=== PATIENT | female | born 1990 | race Caucasian/White ===

== ENCOUNTER 2016-11-10 22:14 | Observation (INO) ==
[2016-11-11] MEDS ORDERED: Naloxone 0.4 MG/ML INJ IVP PRN (00:48)
--- NOTE | 2016-11-11 00:57 | Internal Med History&Physical ---
Date of Encounter: 11/11/16 Time of Encounter: 01:00 Assessment and Plan (1) KENYON (acute kidney injury) Current visit: Yes Status: Acute Etiology is undetermined. Patient's family history of polycystic renal disease makes her having a risk of polycystic kidney problem. - We will check renal ultra sounds to rule out polycystic kidney problem and obstruction. - We will check UA, urine sodium, potassium, creatinine, and eosinophil. - We will track urine output and renal function. - Nephrology consult. (2) Edema Current visit: Yes Status: Acute Probably due to her KENYON. Will follow lab results, US Renal. Nephrology consult. - We will hold IV fluid now because patient was given IV fluid in [facility], which seems not improved urine output and increased patient's swelling. Qualifiers: Edema type: localized Qualified Code(s): R60.0 - Localized edema (3) DVT prophylaxis Current visit: Yes Status: Acute Lovenox subcutaneously. 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 Internal Medicine - H&P: HPI Chief complaint: Feet and hands swelling Admitted From: Home Plans for Post Hospital Care: Home History of present illness: Ms. Ruano is a 26 year old female transferred from [facility] for feet and hands swelling since yesterday. Patient did generally in good health, no significant past medical history. She found swelling on bilateral lower extremity, with pain. She also found bilateral hands swelling. She also found her urine output is decreased. The condition is getting worse and she went to the emergency room in [facility]. She was found elevated creatinine level. Patient denies lightheaded, dizziness, sore throat, cough, shortness of breath, chest pain, nausea, vomiting, abdominal pain, diarrhea, urination symptoms like burning or urgent. She has no recent URI. She is not currently taking any medication. She denies recent dehydration or hypotension. She was admitted for further management. Patient's father's side has a family history of polycystic kidney disease. Patient also has hyper-homocystine level. I discussed the CODE STATUS with patient. She is full code. Past Med Surg Social Fam HX - Past Medical History Psychiatric history: no psych history - Past Surgical History Surgical History: - Social History Smoking Status: Current every day smoker Packs per day: 1/2 ppd Smokeless Tobacco Status: No Alcohol use: none Drug use: none - Family History Mother Living Status: Still Living Hx Family Endocrine Disorder: Yes (DM) Internal Medicine - H&P: Meds Allergies ciprofloxacin [From Cipro] Allergy (Verified 11/11/16 00:05) Anaphylaxis Sulfa (Sulfonamide Antibiotics) Allergy (Verified 11/11/16 00:05) Anaphylaxis sulfamethoxazole [From Bactrim] Allergy (Verified 11/11/16 00:05) Anaphylaxis trimethoprim [From Bactrim] Allergy (Verified 11/11/16 00:05) Anaphylaxis All Systems PM: A 10-system review of systems was performed and is negative for pertinent findings except as documented above in the HPI. - Constitutional Vitals: Temp Pulse Resp BP Pulse Ox 98.0 F 69 17 124/74 98 11/11/16 00:07 11/11/16 00:07 11/11/16 00:07 11/11/16 00:07 11/11/16 00:07 General appearance: Present: A&O X 3, no acute distress, answers questions appropriately - Head Head exam: Present: atraumatic, normocephalic - Eye Eye exam: Present: PERRL, conjuntiva pink, sclera anicteric Pupils: Present: PERRL - Neck Neck exam general surgery: Present: supple, trachea midline. Absent: lymphadenopathy - Respiratory Respiratory exam: Present: CTAB. Absent: accessory muscle use, rales, rhonchi, wheezes - Cardiovascular Cardiovascular exam: Present: RRR, +S1, +S2. Absent: diastolic murmur, gallop, rubs, systolic murmur - GI/Abdominal GI/Abdominal exam: Present: normal bowel sounds, soft, no peritoneal signs. Absent: distended, tenderness - Extremities Exam Extremities exam: Present: pedal edema, warm, radial pulses palpable and symetrical. Absent: calf tenderness, cyanotic Additional comments: Bilateral hand and feet edema, non-pitting. - Neurological Exam Neurological exam: Present: CN II-XII intact, oriented X3, no focal deficits. Absent: pronater drift, facial droop, speech deficit - Skin Skin exam: Present: dry, intact Internal Med - H&P Results - Labs Labs: Labs from [facility]: CBC 6.3/12.2/36.7/241 eosinophils 2%. BMP: 143/4/108/24/18/1.9 /98. Albumin 3.9, UA: WBC 6-10/hp
[2016-11-11] MEDS: *HR* OxyCODONE/APAP 5/325 TABLET PO PRN ×2 (01:09→21:18)
[2016-11-11 01:27] LABS: Bilirubin,Urine Negative (Negative); Blood,Urine Negative (Negative); Clarity,Urine Cloudy (Clear); Color,Urine Yellow (Yellow); Glucose,Urine (UA) Normal (Normal); Ketones,Urine Negative (Negative); Leukocyte Esterase,Urine Small (Negative); Nitrite,Urine Negative (Negative); PH,Urine 5.5 pH Units (5.0-8.0); Protein,Urine Negative (Neg-Trace); Specific Gravity,Urine 1.016 (1.010-1.025); Urobilinogen,Urine Normal (Normal)
[2016-11-11 01:29] LABS: Hyaline Casts,Urine Few per lpf (None-Few); Squamous Epithelial Cell,Urine Many per lpf (None-Few); WBC,Urine 15-30 per hpf (0-3)
[2016-11-11 01:35] LABS: Bacteria,Urine Few per hpf (None-Few)
[2016-11-11 01:37] LABS: Potassium,Urine 27.9 mEq/L
[2016-11-11] MEDS ORDERED: Acetaminophen 325 MG TABLET PO PRN (02:11)
[2016-11-11 04:45] LABS: INR 1.1; Prothrombin Time 11.4 Seconds (9.4-12.1)
[2016-11-11 04:48] LABS: Basophils % 0.2 %; Eosinophils # 0.1 K/mcL (0.0-0.6); Eosinophils % 3.1 %; Hematocrit 30.7 % (35.3-44.9); Hemoglobin 10.1 g/dL (11.5-15.4); Immature Granulocytes % 0.7 % (0-4); Lymphocytes # 1.8 K/mcL (0.6-4.6); Lymphocytes % 39.5 %; Mean Corpuscular HGB Conc 32.9 g/dL (31.6-35.5); Mean Corpuscular Hemoglobin 30.4 pg (28.0-33.3); Mean Corpuscular Volume 92.5 fL (83.0-100.0); Mean Platelet Volume 10.5 fL (9.4-12.4); Monocytes # 0.4 K/mcL (0.0-1.3); Monocytes % 8.3 %; Neutrophils # 2.2 K/mcL (1.6-8.9); Platelet Count 197 K/mcL (140-400); Red Blood Count 3.32 M/mcL (3.82-4.97); Red Cell Distribution Width 13.2 % (11.5-14.5); Segmented Neutrophils % 48.2 %
[2016-11-11 04:55] LABS: Albumin 2.9 g/dL (3.5-5.0); Albumin/Globulin Ratio 1.2 (1.1-2.2); Bilirubin,Total 0.2 mg/dL (0.2-1.2); Calcium 8.1 mg/dL (8.6-10.8); Globulin 2.5 g/dL (2.4-3.5); Magnesium 2.1 mg/dL (1.6-2.6); Potassium 3.6 mEq/L (3.5-4.5); Total Protein 5.4 g/dL (6.0-8.3)
[2016-11-11 05:26] LABS: Large Platelets Present (Not Present); Platelet Estimate Normal (Normal); Reactive Lymphocytes Present (Not Present)
[2016-11-11] MEDS: *HR* Heparin 5,000 UNIT/ML VIAL SQ SCH ×2 (05:31→18:45)
[2016-11-11] MEDS ORDERED: Ondansetron 4 MG/2 ML VIAL IVP PRN (08:17)
--- NOTE | 2016-11-11 11:34 | Nephrology Consult Note ---
Date of Encounter: 11/11/16 Time of Encounter: 11:30 Assessment and Plan (1) KENYON (acute kidney injury) Status: Acute Elevated SCr with decreased UOP and edema rule out GN Agree with US of kidney UA does not show active sediment which is not consistent with GN but will check urine for proteinuria Will check KENYA and complements Will also check rheumatoid factor as well Encourage po fluids Will check CPK and uric acid levels (2) Edema Status: Acute Etiology unclear but no diuretics at this time Low sodium diet for now Qualifiers: Edema type: localized Qualified Code(s): R60.0 - Localized edema History of Present Illness - Reason for Consult Consult date: 11/11/16 Acute Kidney Injury Requesting physician: Niko Salas - History of Present Illness 26 y o female with no significant PMH f family history of polycystic renal disease admitted as a transfer from [facility] for LE/UE edema. She was noted with SCr of 1.64, GFR 37 with no baseline available. She also had decreased UOP but no recent URI. No athrlagias and myalgias. She denies any dietary indiscretions. She denies any prior history of renal disease. No hematuria or proteinuria. At the time of this evaluation, patient was having some nausea. Past Med Surg Social Fam HX - Past Medical History Psychiatric history: no psych history - Past Surgical History Surgical History: - Social History Smoking Status: Current every day smoker Packs per day: 1/2 ppd Smokeless Tobacco Status: No Alcohol use: none Drug use: none - Family History Mother Living Status: Still Living Hx Family Endocrine Disorder: Yes (DM) Medications and Allergies Allergies ciprofloxacin [From Cipro] Allergy (Verified 11/11/16 00:05) Anaphylaxis Sulfa (Sulfonamide Antibiotics) Allergy (Verified 11/11/16 00:05) Anaphylaxis sulfamethoxazole [From Bactrim] Allergy (Verified 11/11/16 00:05) Anaphylaxis trimethoprim [From Bactrim] Allergy (Verified 11/11/16 00:05) Anaphylaxis Review of Systems All Systems: reviewed and no additional remarkable complaints except as stated ( 10 systems reviwed) Exam - Vital Signs Vital signs: Initial Vital Signs Temp Pulse Resp BP Pulse Ox 98.0 F 69 17 124/74 98 11/11/16 00:07 11/11/16 00:07 11/11/16 00:07 11/11/16 00:07 11/11/16 00:07 Vital Signs - Last 8 Hours Temp Pulse Resp BP Pulse Ox 11/11/16 11:14 98.4 F 69 17 109/66 99 11/11/16 07:41 97.6 F 77 17 112/69 98 11/11/16 03:50 97.9 F 71 14 112/67 98 Intake and Output 11/10/16 11/11/16 11/11/16 23:59 07:59 15:59 Other: Weight 77.292 kg Patient Weight 11/11/16 23:59 Weight 77.292 kg - General Appearance General appearance: well-developed, well-nourished EENT: ATNC, mucous membranes moist Neck: no JVD, supple Respiratory: clear Cardiology: edema (UE with fingers R>L, trace LE edema bilat), normal S1, normal S2 Gastrointestinal: no tenderness, no guarding Integumentary: warm and dry Neurologic: no focal deficit Musculoskeletal: no deformities Psychiatric: mood/affect appropriate, cooperative Results - Lab Results 11/12/16 10:59 11/12/16 18:29 Most recent lab results Calcium 8.1 mg/dL (8.6-10.8) L 11/11/16 03:25 Phosphorus 5.0 mg/dL (2.3-4.7) H 11/11/16 03:25 Magnesium 2.1 mg/dL (1.6-2.6) 11/11/16 03:25 Urine Creatinine 169 mg/dL 11/11/16 01:05 Urine Sodium 93.0 mEq/L 11/11/16 01:05 Consult Discharge Plan - Plan Referrals: Yenifer Deshpande CNP [Primary Care Provider] - Shelley Martines MD [Partnered Physician] -
[2016-11-11] MEDS: Acetaminophen/Aspirin/Caffeine TABLET PO PRN (11:46)
[2016-11-11 13:45] LABS: Amphetamine Screen,Urine Negative ng/mL (Cutoff=1000); Barbiturate Screen,Urine Negative ng/mL (Cutoff=200); Benzodiazepines Screen,Urine Negative ng/mL (Cutoff=200); Cannabinoid Screen,Urine Negative ng/mL (Cutoff = 50); Cocaine Screen,Urine Negative ng/mL (Cutoff= 300); Opiate Screen,Urine Positive ng/mL (Cutoff=300); Phencyclidine Screen,Urine Negative ng/mL (Cutoff=25)
[2016-11-11 13:47] LABS: Protein/Creatinine Ratio,Urine 0.14 mg/mg (0-0.20)
[2016-11-11 14:42] LABS: Uric Acid 5.7 mg/dL (2.6-6.0)
[2016-11-11] MEDS ORDERED: 0.9 % Sodium Chloride 1,000 ML IVC SCH (23:45)
[2016-11-12] MEDS: *HR* Heparin 5,000 UNIT/ML VIAL SQ SCH ×3 (06:05→18:42)
[2016-11-12 11:14] LABS: Basophils % 0.5 %; Eosinophils # 0.1 K/mcL (0.0-0.6); Eosinophils % 2.6 %; Hematocrit 29.6 % (35.3-44.9); Hemoglobin 9.8 g/dL (11.5-15.4); Immature Granulocytes % 0.2 % (0-4); Lymphocytes # 1.6 K/mcL (0.6-4.6); Lymphocytes % 36.5 %; Mean Corpuscular HGB Conc 33.1 g/dL (31.6-35.5); Mean Corpuscular Hemoglobin 30.8 pg (28.0-33.3); Mean Corpuscular Volume 93.1 fL (83.0-100.0); Mean Platelet Volume 10.3 fL (9.4-12.4); Monocytes # 0.4 K/mcL (0.0-1.3); Monocytes % 9.4 %; Neutrophils # 2.2 K/mcL (1.6-8.9); Platelet Count 205 K/mcL (140-400); Red Blood Count 3.18 M/mcL (3.82-4.97); Red Cell Distribution Width 13.2 % (11.5-14.5); Segmented Neutrophils % 50.8 %
[2016-11-12 11:26] LABS: Magnesium 2.2 mg/dL (1.6-2.6); Phosphorous 3.2 mg/dL (2.3-4.7); Potassium 3.9 mEq/L (3.5-4.5)
[2016-11-12 11:28] LABS: % Iron Saturation 47 % (15-50); Iron 104 mcg/dL (50-170); Lactate Dehydrogenase 165 Units/L (159-327); Transferrin 157 mg/dL (180-382)
[2016-11-12 11:41] LABS: Large Platelets Present (Not Present); Platelet Estimate Normal (Normal); Reactive Lymphocytes Present (Not Present)
[2016-11-12 11:49] LABS: Ferritin 54 ng/ml (5-204)
[2016-11-12 12:04] LABS: Folate 5.9 ng/mL (7.0-31.4)
[2016-11-12 13:09] LABS: Complement Component 3 70 mg/dL (88-201); Complement Component 4 11 mg/dL (10-40)
[2016-11-12] MEDS: Acetaminophen/Aspirin/Caffeine TABLET PO PRN (13:18)
--- NOTE | 2016-11-12 13:39 | Nephrology Progress Note ---
Date of Encounter: 11/12/16 - Assessment and Plan (1) KENYON (acute kidney injury) Current Visit: Yes Status: Acute (2) Edema Current Visit: Yes Status: Acute Qualifiers: Edema type: localized Qualified Code(s): R60.0 - Localized edema Objective - Vital Signs Vital signs: Vital Signs Temp Pulse Resp BP Pulse Ox 11/12/16 11:08 98.3 F 78 17 122/82 99 11/12/16 08:07 98 11/12/16 06:56 98.1 F 74 17 113/68 98 11/12/16 02:56 98.1 F 74 18 116/73 98 11/11/16 23:03 98.3 F 86 18 113/66 97 11/11/16 19:00 97.8 F 68 16 116/76 100 11/11/16 15:46 98.1 F 79 16 105/65 98 Intake and Output 11/11/16 11/12/16 11/12/16 23:59 07:59 15:59 Intake Total 290 / 290 Output Total 310 / 310 Balance -310 / -310 290 / 290 Intake: Oral 290 / 290 Output: Urine 310 / 310 Other: Meal Lunch Percent of Meal Consumed 25% Weight 76.7 kg Patient Weight 11/12/16 23:59 Weight 76.7 kg - Lab 11/12/16 10:59 11/12/16 10:59 Most recent lab results Calcium 8.0 mg/dL (8.6-10.8) L 11/12/16 10:59 Phosphorus 3.2 mg/dL (2.3-4.7) 11/12/16 10:59 Magnesium 2.2 mg/dL (1.6-2.6) 11/12/16 10:59 Urine Creatinine 211 mg/dL 11/11/16 13:25 Urine Sodium 93.0 mEq/L 11/11/16 01:05 Urine Total Protein 29 mg/dL (1-14) H 11/11/16 13:25 Consult Discharge Plan - Plan Referrals: Yenifer Deshpande, [employer] [Primary Care Provider] -
[2016-11-12 15:52] VITALS: BP 112/64
--- NOTE | 2016-11-12 18:46 | Discharge Summary ---
Date of Encounter: 11/12/16 Time of Encounter: 18:44 - Discharge Diagnosis (1) KENYON (acute kidney injury) Priority: Primary Status: Acute (2) Anemia Priority: Primary Status: Chronic Qualifiers: Anemia type: unspecified type Qualified Code(s): D64.9 - Anemia, unspecified (3) Edema Priority: Primary Status: Acute Qualifiers: Edema type: localized Qualified Code(s): R60.0 - Localized edema - Discharge Medications Allergies/Adverse Reactions: Allergies ciprofloxacin [From Cipro] Allergy (Verified 11/11/16 00:05) Anaphylaxis Sulfa (Sulfonamide Antibiotics) Allergy (Verified 11/11/16 00:05) Anaphylaxis sulfamethoxazole [From Bactrim] Allergy (Verified 11/11/16 00:05) Anaphylaxis trimethoprim [From Bactrim] Allergy (Verified 11/11/16 00:05) Anaphylaxis Procedures/tests Complete & Pending: Procedures Performed prior 72 hours Category Date Time Status US retroperitoneal limited [US] Routine Exams 11/11/16 09:00 Completed Date of admission: 11/10/16 23:44 Primary care physician: Yenifer Deshpande CNP Consults: 11/11/16 06:55 Consult to Nephrology [CONS] Routine Consulting Provider: Kidney Vanessa/DAISY/ROQUE/GERRY Reason for Consult: KENYON Call Completed: No - Patient Status Disposition: Home, Self-Care Condition: Good Functional capacity at discharge: independent ambulation Overall status at discharge: patient is not back to baseline - Discharge Instructions Follow Up With: Yenifer Deshpande CNP [Primary Care Provider] - Shelley Martines MD [Partnered Physician] - - Diet and Activity Activity: resume usual activities as tolerated Diet: low salt diet Interval History: patient is eager to go home. her only complaint is persistent edema in her lower extremities that is not getting worse. she is eating and ambulating well. Hospital course: Ms. Ruano is a 26 year old female with no significant past medical history who describes a few days of swelling of her extremities, and decreased urine output. She also describes episodes of Raynaud phenomenon that lasted for a few minutes. Patient's father's side has a family history of polycystic kidney disease. NO lightheaded, dizziness, sore throat, cough, shortness of breath, chest pain, nausea, vomiting, abdominal pain, diarrhea, dysuria, bleeding, URI symptoms, syncope. Her only medication is excedrin migraines and she takes it three times a week. She denies recent dehydration. No drug use. Us renal was unremarkable. Her Cr improved from 1.9 at [facility] to 1.42 the day of discharge after gentle IV fluid hydration. Normal uric acid, CPK, LDH, and RF. PLAN: given patient is hemodynamically stable and kidney function is not worsening, she will have a close follow up in the outpatient clinic. pending labs are complement and KENYA. repeat BMP this monday November 14, 2016. Patient was explained in detail her diagnosis and treatment. she verbalized understanding and agreed with the plan. - Time Spent with Patient Total time spent providing and/or coordinating discharge services: - Constitutional Vitals: Temp Pulse Resp BP Pulse Ox 98.2 F 67 17 112/64 99 11/12/16 15:50 11/12/16 15:50 11/12/16 15:50 11/12/16 15:50 11/12/16 15:50 General appearance: Present: A&O X 3, no acute distress, answers questions appropriately - Respiratory Respiratory exam: Present: CTAB - Cardiovascular Cardiovascular exam: Present: RRR - GI/Abdominal GI/Abdominal exam: Present: soft. Absent: tenderness - Extremities Exam Additional comments: mild swelling of upper and lower extremities. - Back Exam Back exam: Absent: CVA tenderness (L), CVA tenderness (R) - Neurological Exam Neurological exam: Present: alert, oriented X3, no focal deficits, strengths equal and symetr throughout. Absent: facial droop, speech deficit - Skin Skin exam: Absent: rash
[2016-11-12 21:22] LABS: Calcium 8.2 mg/dL (8.6-10.8); Potassium 3.7 mEq/L (3.5-4.5)
[2016-11-13 07:14] LABS: ANA IgG by ELISA NONE DETECTED (None Detected)
== END 2016-11-12 19:56 | disposition home or self-care (01) ==
LOC: 3BNU → SUATTDRO 11-11 00:48
PROVIDERS: ADMIT Internal Medicine; ATTEND Internal Medicine